=== PATIENT | male | born 1985 | race Hispanic/Latino ===

== ENCOUNTER 2018-09-25 07:50 | Emergency (ER) | payer SELFPAY ==
[2018-09-25 08:13] LABS: #Eosinphils 0.1 thou/uL (0.0-0.7); #Monocytes 0.3 thou/uL (0.11-0.59); #Neutrophils 9.8 thou/uL (1.40-6.50); %Basophils 0.3 % (0.0-1.0); %Eosinophils 0.5 % (0.0-10.0); %Lymphocytes 8.5 % (21.0-51.0); %Monocytes 2.9 % (0.0-10.0); %Neutrophils 87.8 % (42.0-75.0); Hemoglobin 15.4 g/dL (14.0-18.0); Mean Corpuscular HGB CONC 33.3 g/dL (32.0-36.0); Mean Corpuscular Hemoglobin 28.4 pg (27.0-31.0); Mean Corpuscular Volume 85.3 fL (78.0-98.0); Mean Platelet Volume 7.7 fL (7.4-10.4); Platelet Count 246 thou/uL (130-400); RBC Distribution Width 12.3 % (11.5-14.5); Red Blood Cell (RBC) Count 5.41 mill/uL (4.70-6.10); White Blood Cell (WBC) Count 11.2 thou/uL (4.8-10.8)
[2018-09-25 08:36] LABS: ALT (SGPT) 22 U/L (8-55); AST (SGOT) 17 U/L (5-34); Albumin 4.7 g/dL (3.5-5.0); Alkaline Phosphatase 81 U/L (40-150); Anion Gap 14 mmol/L (10-20); BUN (Urea Nitrogen) 18 mg/dL (8.9-20.6); Bilirubin, Total 1.3 mg/dL (0.2-1.2); Calc. Creatinine Clearance 0 mL/min (70-130); Calcium 9.9 mg/dL (7.8-10.44); Carbon Dioxide 24 mmol/L (22-29); Chloride 103 mmol/L (98-107); Estimated GFR-MDRD 58; Globulin 2.8 g/dL (2.4-3.5); Glucose 285 mg/dL (70-105); Lipase 20 U/L (8-78); Potassium 4.2 mmol/L (3.5-5.1); Protein, Total 7.5 g/dL (6.0-8.3); Sodium 137 mmol/L (136-145)
[2018-09-25] MEDS ORDERED: Metoclopramide HCl 10 MG/2 ML VIAL ONE (09:55)
[2018-09-25] MEDS ORDERED: Ondansetron PF 4 MG/2 ML Vial ONE (09:55)
[2018-09-25] MEDS ORDERED: Famotidine/PF 20 mg/2ml Vial ONE (09:55)
[2018-09-25] MEDS ORDERED: Heparin 5,000 UNITS/ML VIAL ONE (11:45)
[2018-09-25] MEDS ORDERED: Protamine Sulfate 250 MG/25 ML VIAL ONE (11:45)
[2018-09-25] MEDS ORDERED: Lidocaine 2% PF 5 ML VIAL ONE (11:45)
[2018-09-25] MEDS ORDERED: Bupivacaine HCl 0.5%/Epinephrine 1:200,000/PF 30 ml Vial ONE (11:45)
== END 2018-09-25 11:10 | disposition home or self-care (01) ==
LOC: ERS 07:50
DX: R10.9 Unspecified abdominal pain (principal); E11.9 Type 2 diabetes mellitus without complications; I10 Essential (primary) hypertension; Z79.899 Other long term (current) drug therapy
CPT/HCPCS: 36415; 36416; 80053; 83690; 85025; 96361; 96372; 96374; 96375; J0500; J0670; J1644; J2001; J2405; J2720; J2765; S0028

== ENCOUNTER 2018-09-26 13:22 | Emergency (ER) | payer SELFPAY ==
[2018-09-26] MEDS ORDERED: Ondansetron ODT 4 MG TAB ONE (13:40)
--- NOTE | 2018-09-26 14:17 | RAD ---
ACUTE ABDOMEN SERIES: INDICATIONS: Obstruction. Abdominal pain. COMPARISON: No prior imaging comparison. FINDINGS: The lungs are clear. No free air is seen beneath the hemidiaphragms. The cardiac silhouette is of n ormal size. There is an ectatic loop of air-filled small bowel at the right mid abdomen, approximate ly 3 cm by radiographic assessment. Air is seen throughout the course of the colon. Rounded density of the right hemipelvis indicates a phlebolith. IMPRESSION: Nonspecific ectatic air-filled loop of bowel. This could relate to a localized ileus. Obstructive p athology is not excluded on the basis of this exam. Recommend clinical correlation and, if necessary, follow-up imaging may be obtained for continued deborah luation. POS: [facility]
[2018-09-26 14:35] LABS: Hemoglobin 15.2 g/dL (14.0-18.0); Mean Corpuscular HGB CONC 34.2 g/dL (32.0-36.0); Mean Corpuscular Hemoglobin 28.7 pg (27.0-31.0); Mean Corpuscular Volume 83.8 fL (78.0-98.0); Mean Platelet Volume 7.6 fL (7.4-10.4); Platelet Count 239 thou/uL (130-400); RBC Distribution Width 12.1 % (11.5-14.5); Red Blood Cell (RBC) Count 5.29 mill/uL (4.70-6.10)
[2018-09-26] MEDS ORDERED: ISOVUE-370 76%-LOCM 1 ML ONE (14:39)
[2018-09-26 14:53] LABS: ALT (SGPT) 30 U/L (8-55); AST (SGOT) 57 U/L (5-34); Albumin 4.7 g/dL (3.5-5.0); Alkaline Phosphatase 80 U/L (40-150); Anion Gap 15 mmol/L (10-20); BUN (Urea Nitrogen) 20 mg/dL (8.9-20.6); Bilirubin, Total 1.4 mg/dL (0.2-1.2); CK (CPK) 2474 U/L (30-200); Calc. Creatinine Clearance 0 mL/min (70-130); Calcium 9.9 mg/dL (7.8-10.44); Carbon Dioxide 25 mmol/L (22-29); Chloride 100 mmol/L (98-107); Estimated GFR-MDRD 64; Globulin 2.8 g/dL (2.4-3.5); Glucose 297 mg/dL (70-105); Lipase 15 U/L (8-78); Potassium 4.1 mmol/L (3.5-5.1); Protein, Total 7.5 g/dL (6.0-8.3); Sodium 136 mmol/L (136-145)
--- NOTE | 2018-09-26 15:04 | CT ---
CT ABDOMEN AND PELVIS WITH IV CONTRAST ONLY: Date: 09/26/18 HISTORY: Vomiting. FINDINGS: The lung bases are clear. The liver, spleen, pancreas, adrenal glands and kidneys are normal. No calc ified gallstones are seen. No free air, free fluid, or lymphadenopathy identified in the abdomen or p sandro. The small bowel loops are not abnormally dilated. The appendix is normal. Vascular calcificati ons are present without evidence of aneurysmal dilatation of the abdominal aorta. No acute osseous ab normalities are seen. IMPRESSION: No evidence of acute process. POS: [facility]
[2018-09-26] MEDS ORDERED: Pantoprazole 40 MG VIAL ONE (15:10)
[2018-09-26] MEDS ORDERED: Promethazine HCl 25 MG/ML VIAL ONE (15:10)
[2018-09-26 15:12] LABS: Lymphocytes 4 % (21-51); MDiff Complete? YES; Monocytes 4 % (0-10); Neutrophil 92 % (42-75); Platelet Morphology Comment Appears Adequate
[2018-09-26] MEDS ORDERED: Haloperidol Lactate 5 MG/ML VIAL ONE (15:40)
--- NOTE | 2018-09-30 00:05 | EKG ---
Test Reason : Blood Pressure : / mmHG Vent. Rate : 058 BPM Atrial Rate : 058 BPM P-R Int : 148 ms QRS Dur : 094 ms QT Int : 440 ms P-R-T Axes : 067 064 045 degrees QTc Int : 431 ms Sinus bradycardia with occasional Premature ventricular complexes No STEMI Otherwise normal ECG Confirmed by ANDRE THURSTON M.D. ([id number]), makeup editor ASHLEE LERMA ([id number] on 09/30/2018 12:05:11 AM Referred By: Confirmed By:ANDRE THURSTON M.D.
== END 2018-09-26 19:20 | disposition home or self-care (01) ==
LOC: ERS 13:22
DX: E86.0 Dehydration (principal); I10 Essential (primary) hypertension; E11.9 Type 2 diabetes mellitus without complications; Z79.899 Other long term (current) drug therapy; Z87.891 Personal history of nicotine dependence
CPT/HCPCS: 36415; 36416; 74022; 74177; 80053; 82550; 83605; 83690; 85025; 93005; 94760; 96361; 96365; 96375; C9113; J1630; J2550; Q0162; Q9966